=== PATIENT | female | born 1945 | race Caucasian/White ===

== ENCOUNTER 2020-01-24 06:23 | Emergency (ER) | payer MEDICARE, BC ==
[~2020-01-24] VITALS: Ht 165.1 cm; Wt 67.7 kg
[2020-01-24 06:29] VITALS: TEMP 97.5
[2020-01-24] MEDS ORDERED: SYNTHROID 0.0.025 MG PO (06:43)
[2020-01-24] MEDS ORDERED: LASIX 20MG TABL20 MG PO (06:43)
[2020-01-24] MEDS ORDERED: ZETIA 10MG TAB10 MG PO (06:44)
[2020-01-24] MEDS ORDERED: ACTOS 15MG TAB15 MG PO (06:44)
[2020-01-24] MEDS ORDERED: PRINIVIL5 MG PO (06:44)
[2020-01-24] MEDS ORDERED: ASPIRIN 81M81 MG/TA2 PO (06:45)
[2020-01-24] MEDS ORDERED: TOPROL XL 25MG25 MG PO (06:45)
[2020-01-24 07:09] LABS: BASO % 0.5 % (0.0-2.0); EOS # 0.2 (0.0-0.7); EOS % 2.9 % (0-4.0); GRAN # 3.5 (1.4-6.5); GRAN % 53.5 % (42.2-75.2); HEMATOCRIT 41.6 % (37.0-47.0); HEMOGLOBIN 13.2 g/dl (12.5-16.0); LYMPH % 30.4 % (20.0-51.0); MEAN CELL VOLUME 92 fl (80.0-100.0); MEAN CORPUSCULAR HEMOGLOBIN 29 pg (27.0-31.0); MEAN CORPUSCULAR HGB CONC 32 g/dl (33.0-37.0); MEAN PLATELET VOLUME 10.8 fl (7.4-10.4); MONO # 0.8 (0.1-0.6); MONO % 12.2 % (1.7-9.3); PLATELET COUNT 155 K/mm3 (130-400); RED BLOOD COUNT 4.54 M/mm3 (4.10-5.30); REDCELL DISTRIBUTION WIDTH-CV 14.7 % (11.5-14.5)
[2020-01-24 07:26] LABS: ALANINE AMINOTRANSFERASE 16 U/L (4-34); ALBUMIN 3.8 gm/dL (3.5-5.0); ALKALINE PHOSPHATASE 81 U/L (50-136); ANION GAP 6 mmol/L (7-16); AST,SGOT 30 U/L (15-37); BILIRUBIN,TOTAL 0.8 mg/dL (0.0-1.0); BLOOD UREA NITROGEN 21 mg/dL (7-17); CALCIUM 9.9 mg/dL (8.4-10.2); CARBON DIOXIDE 22 mmol/L (22-30); CHLORIDE 111 mmol/L (98-107); CREATININE, serum 0.86 (0.52-1.25); GLUCOSE 139 mg/dL (74-106); MAGNESIUM 1.8 mg/dL (1.6-2.3); SODIUM 139 mmol/L (137-145)
[2020-01-24 07:38] LABS: TROPONIN-I < 0.012 ng/mL (0.000-0.035)
[2020-01-24 08:07] VITALS: BP 164/70; PULSE 60
== END 2020-01-24 08:42 | disposition home or self-care (01) ==
LOC: COL.ER 06:23
PROVIDERS: Emergency Medicine
DX: R00.2 Palpitations (principal); E03.9 Hypothyroidism, unspecified; E78.00 Pure hypercholesterolemia, unspecified; F17.200 Nicotine dependence, unspecified, uncomplicated; Z88.2 Allergy status to sulfonamides; Z79.890 Hormone replacement therapy; Z79.82 Long term (current) use of aspirin; Z90.49 Acquired absence of other specified parts of digestive tract; Z90.711 Acquired absence of uterus with remaining cervical stump

== ENCOUNTER → 2020-04-12 | Outpatient (CLI) | payer MEDICARE, BC ==
[~2020-04-12] MED LIST: ACTOS 15MG TAB15 MG PO; ASPIRIN 81M81 MG/TA2 PO; LASIX 20MG TABL20 MG PO; PRINIVIL5 MG PO; SYNTHROID 0.0.025 MG PO; TOPROL XL 25MG25 MG PO; ZETIA 10MG TAB10 MG PO
== END ==
LOC: COL.VAS 12:26
DX: I65.23 Occlusion and stenosis of bilateral carotid arteries (principal)

== ENCOUNTER → 2020-06-20 | Outpatient (CLI) | payer MEDICARE, BC | LOC: MC.RAD 10:00 | DX: Z12.31 Encounter for screening mammogram for malignant neoplasm of breast (principal) ==

== ENCOUNTER → 2020-07-04 | Outpatient (CLI) | payer MEDICARE, BC | LOC: MC.RAD 06:56 | DX: R92.8 Other abnormal and inconclusive findings on diagnostic imaging of breast (principal) ==

== ENCOUNTER 2020-10-24 00:31 | Observation (INO) | payer MEDICARE, BC ==
[~2020-10-24] VITALS: Ht 172.7 cm; Wt 80.0 kg
[2020-10-24] VITALS (7 sets, daily range): BP systolic 100–112; BP diastolic 48–64; PULSE 46–70; TEMP 97.4–98.1
[~2020-10-24 00:31] MED LIST changes: -SYNTHROID 0.0.025 MG PO; +SYNTHROID0.1 MG/TAB PO
[2020-10-24 00:44] LABS: BASO % 0.4 % (0.0-2.0); EOS # 0.1 (0.0-0.7); EOS % 0.8 % (0-4.0); GRAN # 8.5 (1.4-6.5); GRAN % 74.7 % (42.2-75.2); HEMATOCRIT 41.9 % (37.0-47.0); HEMOGLOBIN 13.6 g/dl (12.5-16.0); LYMPH # 1.6 (1.2-3.4); LYMPH % 13.7 % (20.0-51.0); MEAN CELL VOLUME 93 fl (80.0-100.0); MEAN CORPUSCULAR HEMOGLOBIN 30 pg (27.0-31.0); MEAN CORPUSCULAR HGB CONC 33 g/dl (33.0-37.0); MONO # 1.1 (0.1-0.6); MONO % 9.5 % (1.7-9.3); PLATELET COUNT 221 K/mm3 (130-400); RED BLOOD COUNT 4.52 M/mm3 (4.10-5.30); REDCELL DISTRIBUTION WIDTH-CV 14.3 % (11.5-14.5)
[2020-10-24 01:00] LABS: COLLECTION METHOD CLEAN CATCH
[2020-10-24 01:00] LABS: ALANINE AMINOTRANSFERASE 35 U/L (4-34); ALBUMIN 4.2 gm/dL (3.5-5.0); ALKALINE PHOSPHATASE 53 U/L (50-136); ANION GAP 10 mmol/L (7-16); AST,SGOT 53 U/L (15-37); BILIRUBIN,TOTAL 0.7 mg/dL (0.0-1.0); BLOOD UREA NITROGEN 41 mg/dL (7-17); CALCIUM 12.3 mg/dL (8.4-10.2); CARBON DIOXIDE 28 mmol/L (22-30); CHLORIDE 99 mmol/L (98-107); CREATININE, serum 1.52 (0.52-1.25); GLUCOSE 203 mg/dL (74-106); LIPASE 102 U/L (23-300); SODIUM 137 mmol/L (137-145); TOTAL PROTEIN 7.8 gm/dL (6.4-8.2)
[2020-10-24 01:06] LABS: MUCOUS Present /lpf; PH 6 (5-8); SQUAMOUS EPITHELIAL 0-2 /hpf; URINE APPEARANCE Hazy; URINE BACTERIA None Seen /hpf; URINE BILIRUBIN Negative (NEGATIVE); URINE BLOOD Negative (NEGATIVE); URINE COLOR Yellow; URINE GLUCOSE 3+ (NEGATIVE); URINE KETONE Trace (NEGATIVE); URINE LEUKOCYTE ESTERASE Negative (NEGATIVE); URINE NITRATE Negative (NEGATIVE); URINE PROTEIN(semi-quant) Negative (NEGATIVE); URINE RBC 0-2 /hpf; URINE UROBILINOGEN Negative (NEGATIVE)
[2020-10-24 01:14] LABS: TROPONIN-I < 0.012 ng/mL (0.000-0.035)
[2020-10-24] MEDS ORDERED: JANUVIA 100MG100 MG PO (03:32)
[2020-10-24 04:53] LABS: BASO % 0.4 % (0.0-2.0); EOS % 0.1 % (0-4.0); GRAN # 7.3 (1.4-6.5); GRAN % 76.5 % (42.2-75.2); HEMATOCRIT 37.6 % (37.0-47.0); HEMOGLOBIN 12.4 g/dl (12.5-16.0); LYMPH # 1.5 (1.2-3.4); LYMPH % 15.8 % (20.0-51.0); MEAN CELL VOLUME 92 fl (80.0-100.0); MEAN CORPUSCULAR HEMOGLOBIN 31 pg (27.0-31.0); MEAN CORPUSCULAR HGB CONC 33 g/dl (33.0-37.0); MEAN PLATELET VOLUME 10.5 fl (7.4-10.4); MONO # 0.6 (0.1-0.6); MONO % 6.6 % (1.7-9.3); PLATELET COUNT 193 K/mm3 (130-400); RED BLOOD COUNT 4.07 M/mm3 (4.10-5.30); REDCELL DISTRIBUTION WIDTH-CV 14.4 % (11.5-14.5)
[2020-10-24 05:05] LABS: CALCIUM 11.3 mg/dL (8.4-10.2); CREATININE, serum 1.46 (0.52-1.25); POTASSIUM 3.7 mmol/L (3.4-5.0)
--- NOTE | 2020-10-24 05:13 | NUR ---
Admitted to surgical floor from ER--DX:hypotension, SALONI,dehydration. Denies pain,, Pt is confused as to day/time--very forgetful and cannot focus on what is being said-- repeating herself and getting a bit agitated about questions being asked-- med rec is not done--patient does not know meds and is getting frustrated by questions-- will need to call Dr. Collins office in the AM,will relay to day shift. Also patient lives alone and called EMS--her son is not aware of her hospitalization,, she states she will call at 0800 this morning,,does not want me to call at this time "ITS TOO EARLY ",, Did talk to PEE CASTRO and she states she will call him close to 0600 to talk with him-- Pt has belongings with her--glasses,watch, phone, 4 rings,purse/does not want anything to be in the safe tonight. VSS. On Fall Risk- bed alarm on,,on clear liquids- water and jello given. Blood sugar 152.
[2020-10-24] MEDS ORDERED: PRINIVIL5 MG PO (09:02)
[2020-10-24] MEDS ORDERED: JARDIANCE25 PO (09:03)
[2020-10-24] MEDS ORDERED: COLACE 100100 MG/CAP PO (09:09)
[2020-10-24] MEDS ORDERED: MOBIC15 MG PO (09:10)
[2020-10-24] MEDS ORDERED: LASIX 20MG TABL20 MG PO (09:11)
[2020-10-24] MEDS ORDERED: FOSAMAX 35MG35 MG PO (09:15)
--- NOTE | 2020-10-24 09:35 | NUR ---
Initial visit; Patient thanked De Icer for looking in on her and offering God's blessings and to keep her in [facility] Icer's prayers.
--- NOTE | 2020-10-24 10:29 | NUR ---
Tare Man met with patient to discuss discharge planning. Patient has a history of dementia. Patient is able to answer questions, but does experience some confusion during intake. Patient lives alone in [place] and her son, Saad (ph#[phone]) also lives in [place]. Patient sees Dr. Manriquez for primary care and has medications delivered by [facility] with no difficulties. Patient has a front wheeled walker but states she doesn't need to use it. 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 Patient advised she still shops for her own groceries. Patient advised her son, Saad is DPOA but SW did not locate copy in EMR. Patient advised she has had Home Health in the past but doesn't remember the agency. Patient may be interested in HH upon discharge. NAVID contacted patient's son, Saad who advised patient has used [facility] in the past. Saad states patient's late received Hospice services from [facility] as well before he passed. Saad may be interested in HH services again for patient but first wants to know why patient was admitted to the hospital. NAVID contacted Hospitalist who will contact Saad with an update. Discharge Plan: Home with possible Home Health services.
--- NOTE | 2020-10-24 11:00 | NUR ---
Patient is doing well this morning. She has not had a bowel movement. She is worried about her medication. Her son checked the house and did not find them. She said she told EMS to bring her daily pill box and her 2 new medication bottles. Called ED, Pharmacy and EMS to see if they have seen the medications. Patient is alert and partially confused. She is also forgetful. She knows where she is at and the month but is unsure of the day. When you ask questions she can't remember the answer to, she just won't answer and changes the subject. No other changes at this time. Call light within reach. Chair alarm on. No bowel movement today.
--- NOTE | 2020-10-24 18:00 | NUR ---
Patient has been doing well today. She got up and walked in the hallway a few times. She has been voiding without issues, no bowel movements today. No complaints of pain or nausea. She has been eating solid food without issues. No other changes at this time. Call light within reach. Chair alarm on.
--- NOTE | 2020-10-24 20:00 | NUR ---
Patient assessed at this time. Alert and oriented x 4. Denies having pain and discomfort. Upset about bed and chair alarms. Reminded patient that we dont want her to fall at the hospital, but still upset. Peripheral IV to right AC. Site without redness, warmth, swelling, and pain. Denies having SOB and dyspnea. LS CTA. Respirations even and unlabored. HRR. Capillary refill less than 3 seconds. Non-tenting skin turgor. BSAx4. Abdomen soft and non-tender. No edema. Voices no questions, needs, or concerns at this time. Resting in bed with call light within reach.
[2020-10-25 00:34] VITALS: BP 99/55; PULSE 67; TEMP 97.9
[2020-10-25 03:53] VITALS: BP 107/43; PULSE 49; TEMP 98.1
[2020-10-25 07:30] VITALS: BP 112/67; PULSE 71; TEMP 97.8
[2020-10-25 07:36] LABS: CALCIUM 9.3 mg/dL (8.4-10.2); CREATININE, serum 1.28 (0.52-1.25); POTASSIUM 4.1 mmol/L (3.4-5.0)
[2020-10-25 08:28] LABS: BASO # 0.1 (0.0-0.2); BASO % 0.8 % (0.0-2.0); EOS # 0.2 (0.0-0.7); EOS % 3.6 % (0-4.0); GRAN # 3.1 (1.4-6.5); GRAN % 49.4 % (42.2-75.2); HEMATOCRIT 38.7 % (37.0-47.0); HEMOGLOBIN 12.3 g/dl (12.5-16.0); LYMPH # 2.2 (1.2-3.4); MEAN CELL VOLUME 93 fl (80.0-100.0); MEAN CORPUSCULAR HEMOGLOBIN 30 pg (27.0-31.0); MEAN CORPUSCULAR HGB CONC 32 g/dl (33.0-37.0); MEAN PLATELET VOLUME 11.3 fl (7.4-10.4); MONO # 0.7 (0.1-0.6); MONO % 10.7 % (1.7-9.3); PLATELET COUNT 179 K/mm3 (130-400); RED BLOOD COUNT 4.15 M/mm3 (4.10-5.30); REDCELL DISTRIBUTION WIDTH-CV 14.4 % (11.5-14.5)
--- NOTE | 2020-10-25 10:40 | NUR ---
Patient is discharging home. Discharge instructions discussed with patient and her son. No questions verbalized. INT discontinued by Student nurse. All belongings packed up and sent with patient. Her son did stated her medications she thought was lost are at home and he did find them. Explained her medication changes. Explained when follow up appointments are. Copies of discharge instructions sent with patient. Patient walked out with hilda nurse and son. Son is aware she will having home health come see her at home.
--- NOTE | 2020-10-25 12:49 | NUR ---
Assistant Housekeeping Manager attended clinical rounds with the team. Patient to discharge home today. SW contacted patient's son, Saad who advised he was able to find patient's medications at home, which were missing yesterday. Saad is also agreeable to have Home Health set up for patient. Saad states they have used [facility] and would like to use them again. NAVID contacted Latia at [facility] and faxed referral/discharge orders. Latia advised that they are able to accept referral.
== END 2020-10-25 10:40 | disposition home or self-care (01) ==
LOC: COL.ER 00:31 → SURG 02:49
PROVIDERS: Emergency Medicine; Student in an Organized Health Care Education/Training Program; ADMIT Internal Medicine
DX: R11.10 Vomiting, unspecified (principal); R19.7 Diarrhea, unspecified; N17.9 Acute kidney failure, unspecified; I95.9 Hypotension, unspecified; E83.52 Hypercalcemia; N28.1 Cyst of kidney, acquired; E11.9 Type 2 diabetes mellitus without complications; E03.9 Hypothyroidism, unspecified; E78.5 Hyperlipidemia, unspecified; F17.210 Nicotine dependence, cigarettes, uncomplicated; Z20.822 Contact with and (suspected) exposure to COVID-19; Z88.2 Allergy status to sulfonamides; Z79.899 Other long term (current) drug therapy; Z79.890 Hormone replacement therapy; Z79.82 Long term (current) use of aspirin
CPT/HCPCS: G0378; J1644; J7030; J7120

== ENCOUNTER → 2020-11-02 | Outpatient (CLI) | payer MEDICARE, BC ==
[~2020-11-02] MED LIST changes: +COLACE 100100 MG/CAP PO; +FOSAMAX 35MG35 MG PO; +JANUVIA 100MG100 MG PO; +JARDIANCE25 PO; +MOBIC15 MG PO
== END ==
LOC: COL.RAD 09:22
DX: N28.1 Cyst of kidney, acquired (principal); Z90.49 Acquired absence of other specified parts of digestive tract
CPT/HCPCS: Q9967